=== PATIENT | female | born 1985 | race Caucasian/White ===

== ENCOUNTER 2024-03-05 03:20 | Inpatient (IN) | payer MEDICAID, OTHER ==
--- NOTE | 2024-03-05 04:07 | ED ---
General Adult HPI - General Chief complaint: Psychiatric Symptoms Stated complaint: Mental Health Time Seen by Provider: 03/05/24 03:34 Source: patient Mode of arrival: ambulatory - History of Present Illness Initial comments: Patient is a 38-year-old female past medical history of depression presenting today for URI symptoms x 2 months and suicidal thoughts. Patient states that she has been dealing with nasal congestion, runny nose, increased frequency of migraine headaches, cough and bodyaches for "months". She was seen in urgent care recently where she was prescribed antibiotics that she completed approximately 1 week ago without improvement of symptoms. She is unsure of the name of the antibiotic she was prescribed. Endorses chills but has not had any fevers. No recent travel, surgeries or hospitalizations. She is a non-smoker. Cough is nonproductive of sputum or blood. She does states she has some shortness of breath "when at work", and thinks possible secondary to "the hot air" blowing in her face at work. She denies changes in vision, numbness, focal weakness. Denies sore throat. Endorses sensation of ear fullness. Is not immunocomprimised. Denies chest pain, nausea, vomiting, abdominal pain, diarrhea. Has mirena IUD in place "that should have been removed a year ago". No history of prior PE/DVT. Is a non-smoker. Patient also presents today for SI. She states she has been out of her prozac for 5 months due to not having insurance and is on the waiting list with [facility]. When asked about a plan, patient states she would "just float in the water". She has previously tried to commit suicide about 1 year ago by wrapping a seatbelt around her neck. She was hospitalized for this. Denies homicidal thoughts or hallucinations. Does state that she drank a few beers last night. Last drink was a few hours prior to arrival. Denies illicit drug use. - Related Data Allergies Allergy/AdvReac Type Severity Reaction Status Date / Time lisinopril AdvReac Cough Verified 03/05/24 15:48 Review of Systems ROS Statement: Those systems with pertinent positive or pertinent negative responses have been documented in the HPI. ROS Other: All systems not noted in ROS Statement are negative. Past Medical History Past Medical History: Hypertension History of Any Multi-Drug Resistant Organisms: None Reported Past Surgical History: Orthopedic Surgery Past Psychological History: Anxiety, Depression Smoking Status: Never smoker Past Alcohol Use History: Daily Past Drug Use History: None Reported General Exam - General Exam Comments Initial Comments: PE: CONSTITUTIONAL: No apparent distress, well appearing, tearful, makes poor eye contact SKIN: Warm, dry, no jaundice, hives or petechiae EYES: Pupils are equally round, extraocular movements intact without nystagmus, clear conjunctiva, non-icteric sclera HENT: Normocephalic, atraumatic, moist mucus membranes, oropharynx clear without exudates, no sinus tenderness or fullness to palpation, no rhinorrhea or thick nasal discharge, mild mucosal edema, tympanic membranes pearly lopez bilaterally NECK: , Full range of motion, normal appearance, no masses palpated, scant cervical lymphadenopathy PULMONARY: Clear to auscultation without wheezes, rhonchi, or rales, normal excursion, no accessory muscle use and no stridor CARDIOVASCULAR: Regular rate, rhythm, normal S1 and S2. No appreciated murmurs, rubs or gallops. Extremities well-perfused no lower extremity edema GASTROINTESTINAL: Soft, active bowel sounds throughout, non-tender, non- distended, no palpable masses, no rebound or guarding. No hepatosplenomegaly MUSCULOSKELETAL: Extremities have no gross deformity, no edema, redness, or swelling. No calf swelling NEUROLOGIC:_a/o x 3, GCS 15, normal mentation and speech. Moves all extremities x 4 without motor or sensory deficit PSYCHIATRIC:_Withdrawn and depressed mood and tearful affect, thought process is clear and linear, endorses suicidal thoughts, denies auditory or visual hallucinations or homicidal thoughts Course Vital Signs 03/05/24 03/05/24 03:22 14:00 Temperature 98.4 F 99.4 F Pulse Rate 101 H Pulse Rate [ 115 H Right Sitting] Respiratory 18 18 Rate Blood Pressure 138/88 Blood Pressure 133/84 [Right Arm Sitting] O2 Sat by Pulse 94 L 97 Oximetry EKG Findings - EKG Comments: EKG Findings:: Sinus rhythm, rate 90 bpm, IN interval 183 ms, QRS duration 102 ms, QT/QTc 376/424 ms, normal axis, no ST elevations or depressions, no delta waves or Brugada pattern Medical Decision Making - Medical Decision Making Was pt. sent in by a medical professional or institution (, PA, ENGINE ROOM OPERATOR, urgent ca re, hospital, or custodial...) When possible be specific @ -No Did you speak to anyone other than the patient for history (EMS, parent, family, police, friend...)? What history was obtained from this source @ -No Did you review nursing and triage notes (agree or disagree)? Why? @ -I reviewed nursing and triage notes-patient endorsed clerical supervisor that URI symptoms have been going on for "a couple of days" however endorsed to myself that they have been ongoing for "a few months" Were old charts reviewed (outside hosp., previous admission, EMS record, old EKG, old radiological studies, urgent care reports/EKG's, custodial records)? Report findings @ -Medical records reviewed-no prior visits to the ER noted in patient's chart Differential Diagnosis (chest pain, altered mental status, abdominal pain women, abdominal pain men, vaginal bleeding, weakness, fever, dyspnea, syncope, headach e, dizziness, GI bleed, back pain, seizure, CVA, palpatations, mental health, musculoskeletal)? @Differential Mental Health Depression, anxiety, bipolar, psychosis, schizophrenia, borderline personality, situational depression, adjustment disorder, behavioral disorder, brain tumor, malingering, substance abuse, encephalopathy, medication reaction, dementia, hypothyroidism, degenerative neurologic disorder, lupus.... This is not meant to be all-inclusive list Regarding patient's upper respiratory symptoms, differential diagnose gretchen broad however top considerations include viral stacking causing URI symptoms, viral versus bacterial sinusitis, pharyngitis, allergic rhinitis, pneumonia this is not an all-inclusive list EKG interpreted by me (3pts min.). @ -As above X-rays interpreted by me (1pt min.). @I see no cardiomegaly or consolidations CT interpreted by me (1pt min.). @ -None done U/S interpreted by me (1pt. min.). @ -None done What testing was considered but not performed or refused? (CT, X-rays, U/S, labs)? Why? @ -I did consider a CT of the sinuses however patient had no sinus tenderness or fullness to palpation and no thick nasal discharge, no fevers What meds were considered but not given or refused? Why? @ -None Did you discuss the management of the patient with other professionals (professionals i.e. , SEPIDEH, ENGINE ROOM OPERATOR, lab, RT, psych nurse, community mental health social worker, blowing engineer, teacher, loan review officer, case finishing machine adjuster)? Give summary @ -No Was smoking cessation discussed for >3mins.? @ -No Was critical care preformed (if so, how long)? @ -No Were there social determinants of health that impacted care today? How? (Homelessness, low income, unemployed, alcoholism, drug addiction, wang sportation, low edu. Level, literacy, decrease access to med. care, long term, rehab)? @Decreased access to medical care, lack of insurance Was there de-escalation of care discussed even if they declined (Discuss DNR or withdrawal of care, Hospice)? @ -No What co-morbidities impacted this encounter? (DM, HTN, Smoking, COPD, CAD, Cancer, CVA, ARF, Chemo, Hep., AIDS, mental health diagnosis, sleep apnea, morbid obesity)? @Depression Was patient admitted / discharged? Hospital course, mention meds given and route, prescriptions, significant lab abnormalities, going to OR and other pertinent info. @ -Signed out to oncoming physician, Dr. Linton, pending EPS evaluation Patient presenting today for upper respiratory infection symptoms and suicidal ideation. She did also endorse shortness of breath, very low suspicion for acute intrathoracic process/cardiopulmonary process however will obtain chest x- ray, EKG, troponin D-dimer in addition to viral panel Monospot testing. Wells score 1.5. Patient's posterior oropharynx was not erythematous, there is no tonsillar swelling or exudates so I did not feel strep testing was indicated at this time. Augementin ordered for sinusitis due to prolonged symptoms (>10 days). Once testing is completed patient will be cleared for evaluation by EPS. Labs significant for D-dimer 0.60 however using years criteria,(patient is not , she has no clinical signs of DVT, no hemoptysis and PE is not the most likely diagnosis), PE can be ruled out w/o CT PE study. Updated patient to findings, plan for chest x-ray and EPS evaluation. Patient agreeable with plan. Endorses nausea. Chest x-ray without acute process. Patient medically cleared for evaluation by EPS. Undiagnosed new problem with uncertain prognosis? @ -No Drug Therapy requiring intensive monitoring for toxicity (Heparin, Nitro, Insulin, Cardizem)? @ -No Were any procedures done? @ -No Diagnosis/symptom? @Acute sinusitis, suicidal ideation Acute, or Chronic, or Acute on Chronic? @Acute Uncomplicated (without systemic symptoms) or Complicated (systemic symptoms)? Complicated Side effects of treatment? @ -No Exacerbation, Progression, or Severe Exacerbation? @ -No Poses a threat to life or bodily function? How? (Chest pain, USA, ND, pneumonia, PE, COPD, DKA, ARF, appy, cholecystitis, CVA, Diverticulitis, Homicidal, Suicidal, threat to staff... and all critical care pts) Patient suicidality poses a threat to life - Lab Data Result diagrams: 03/06/24 07:42 03/06/24 07:42 Lab Results 03/05/24 03/05/24 03/05/24 Range/Units 05:15 05:18 05:18 WBC 6.2 (3.8-10.6) k/uL RBC 5.01 (3.80-5.40) m/uL Hgb 14.2 (11.4-16.0) gm/dL Hct 41.9 (34.0-46.0) % MCV 83.7 (80.0-100.0) fL MCH 28.4 (25.0-35.0) pg MCHC 33.9 (31.0-37.0) g/dL RDW 13.6 (11.5-15.5) % Plt Count 301 (150-450) k/uL MPV 6.6 Neutrophils % 60 % Lymphocytes % 30 % Monocytes % 3 % Eosinophils % 4 % Basophils % 1 % Neutrophils # 3.7 (1.3-7.7) k/uL Lymphocytes # 1.8 (1.0-4.8) k/uL Monocytes # 0.2 (0-1.0) k/uL Eosinophils # 0.3 (0-0.7) k/uL Basophils # 0.1 (0-0.2) k/uL PT 11.1 (10.0-12.5) sec INR 1.0 (<1.2) APTT 25.0 (22.0-30.0) sec D-Dimer 0.60 H (<0.60) mg/L FEU Sodium (137-145) mmol/L Potassium (3.5-5.1) mmol/L Chloride (98-107) mmol/L Carbon Dioxide (22-30) mmol/L Anion Gap mmol/L BUN (7-17) mg/dL Creatinine (0.52-1.04) mg/dL Est GFR (CKD-EPI)AfAm (>60 ml/min/1.73 sqM) Est GFR (CKD-EPI)NonAf (>60 ml/min/1.73 sqM) Glucose (74-99) mg/dL Calcium (8.4-10.2) mg/dL Total Bilirubin (0.2-1.3) mg/dL AST (14-36) U/L ALT (4-34) U/L Alkaline Phosphatase (38-126) U/L Troponin I (0.000-0.034) ng/mL NT-Pro-B Natriuret Pep pg/mL Total Protein (6.3-8.2) g/dL Albumin (3.5-5.0) g/dL HCG, Qual Heterophile Antibody (Negative) Influenza Type A (PCR) Not Detected (Not Detectd) Influenza Type B (PCR) Not Detected (Not Detectd) RSV (PCR) Not Detected (Not Detectd) SARS-CoV-2 (PCR) Not Detected (Not Detectd) 03/05/24 03/05/24 03/05/24 Range/Units 05:18 05:18 05:18 WBC (3.8-10.6) k/uL RBC (3.80-5.40) m/uL Hgb (11.4-16.0) gm/dL Hct (34.0-46.0) % MCV (80.0-100.0) fL MCH (25.0-35.0) pg MCHC (31.0-37.0) g/dL RDW (11.5-15.5) % Plt Count (150-450) k/uL MPV Neutrophils % % Lymphocytes % % Monocytes % % Eosinophils % % Basophils % % Neutrophils # (1.3-7.7) k/uL Lymphocytes # (1.0-4.8) k/uL Monocytes # (0-1.0) k/uL Eosinophils # (0-0.7) k/uL Basophils # (0-0.2) k/uL PT (10.0-12.5) sec INR (<1.2) APTT (22.0-30.0) sec D-Dimer (<0.60) mg/L FEU Sodium 141 (137-145) mmol/L Potassium 4.4 (3.5-5.1) mmol/L Chloride 108 H (98-107) mmol/L Carbon Dioxide 23 (22-30) mmol/L Anion Gap 10 mmol/L BUN 8 (7-17) mg/dL Creatinine 0.58 (0.52-1.04) mg/dL Est GFR (CKD-EPI)AfAm >90 (>60 ml/min/1.73 sqM) Est GFR (CKD-EPI)NonAf >90 (>60 ml/min/1.73 sqM) Glucose 108 H (74-99) mg/dL Calcium 9.0 (8.4-10.2) mg/dL Total Bilirubin 0.4 (0.2-1.3) mg/dL AST 18 (14-36) U/L ALT 15 (4-34) U/L Alkaline Phosphatase 64 (38-126) U/L Troponin I <0.012 (0.000-0.034) ng/mL NT-Pro-B Natriuret Pep 20 pg/mL Total Protein 7.2 (6.3-8.2) g/dL Albumin 4.4 (3.5-5.0) g/dL HCG, Qual Not Detected Heterophile Antibody Negative (Negative) Influenza Type A (PCR) (Not Detectd) Influenza Type B (PCR) (Not Detectd) RSV (PCR) (Not Detectd) SARS-CoV-2 (PCR) (Not Detectd) 03/05/24 Range/Units 12:31 WBC (3.8-10.6) k/uL RBC (3.80-5.40) m/uL Hgb (11.4-16.0) gm/dL Hct (34.0-46.0) % MCV (80.0-100.0) fL MCH (25.0-35.0) pg MCHC (31.0-37.0) g/dL RDW (11.5-15.5) % Plt Count (150-450) k/uL MPV Neutrophils % % Lymphocytes % % Monocytes % % Eosinophils % % Basophils % % Neutrophils # (1.3-7.7) k/uL Lymphocytes # (1.0-4.8) k/uL Monocytes # (0-1.0) k/uL Eosinophils # (0-0.7) k/uL Basophils # (0-0.2) k/uL PT (10.0-12.5) sec INR (<1.2) APTT (22.0-30.0) sec D-Dimer (<0.60) mg/L FEU Sodium (137-145) mmol/L Potassium (3.5-5.1) mmol/L Chloride (98-107) mmol/L Carbon Dioxide (22-30) mmol/L Anion Gap mmol/L BUN (7-17) mg/dL Creatinine (0.52-1.04) mg/dL Est GFR (CKD-EPI)AfAm (>60 ml/min/1.73 sqM) Est GFR (CKD-EPI)NonAf (>60 ml/min/1.73 sqM) Glucose (74-99) mg/dL Calcium (8.4-10.2) mg/dL Total Bilirubin (0.2-1.3) mg/dL AST (14-36) U/L ALT (4-34) U/L Alkaline Phosphatase (38-126) U/L Troponin I (0.000-0.034) ng/mL NT-Pro-B Natriuret Pep pg/mL Total Protein (6.3-8.2) g/dL Albumin (3.5-5.0) g/dL HCG, Qual Heterophile Antibody (Negative) Influenza Type A (PCR) Not Detected (Not Detectd) Influenza Type B (PCR) Not Detected (Not Detectd) RSV (PCR) Not Detected (Not Detectd) SARS-CoV-2 (PCR) Not Detected (Not Detectd) Disposition Clinical Impression: Suicidal thoughts, Sinusitis Disposition: ADMITTED IP TO THIS HOSP
[2024-03-05] MEDS: SODIUM CHLORIDE 0.9% 1,000 ML IV STA (05:41)
[2024-03-05] MEDS: KETOROLAC 15 MG/ML 1 ML VIAL IVP STA (05:42)
[2024-03-05 05:43] LABS: Basophils # (A) 0.1 k/uL (0-0.2); Basophils % (A) 1 %; Eosinophils # (A) 0.3 k/uL (0-0.7); Eosinophils % (A) 4 %; HCT 41.9 % (34.0-46.0); HGB 14.2 gm/dL (11.4-16.0); Lymphocytes # (A) 1.8 k/uL (1.0-4.8); Lymphocytes % (A) 30 %; MCH 28.4 pg (25.0-35.0); MCHC 33.9 g/dL (31.0-37.0); MCV 83.7 fL (80.0-100.0); Mean Platelet Volume 6.6; Monocytes # (A) 0.2 k/uL (0-1.0); Monocytes % (A) 3 %; Neutrophils # (A) 3.7 k/uL (1.3-7.7); Neutrophils % (A) 60 %; Platelet Count 301 k/uL (150-450); RBC 5.01 m/uL (3.80-5.40); RDW 13.6 % (11.5-15.5); WBC 6.2 k/uL (3.8-10.6)
[2024-03-05] MEDS: AMOXIC-POT CLAV 875-125MG 1 EACH TAB PO STA (05:43)
[2024-03-05] MEDS: predniSONE 50 MG TAB PO STA (05:43)
[2024-03-05 05:54] LABS: ALT 15 U/L (4-34); AST 18 U/L (14-36); African American GFR (CKD) >90 (>60 ml/min/1.73 sqM); Albumin 4.4 g/dL (3.5-5.0); Alkaline Phosphatase 64 U/L (38-126); Anion Gap 10 mmol/L; Blood Urea Nitrogen 8 mg/dL (7-17); Carbon Dioxide 23 mmol/L (22-30); Chloride 108 mmol/L (98-107); Glucose 108 mg/dL (74-99); Non-African American GFR(CKD) >90 (>60 ml/min/1.73 sqM); Potassium 4.4 mmol/L (3.5-5.1); Sodium 141 mmol/L (137-145); Total Bilirubin 0.4 mg/dL (0.2-1.3); Total Protein 7.2 g/dL (6.3-8.2)
[2024-03-05 05:57] LABS: Prothrombin Time 11.1 sec (10.0-12.5)
[2024-03-05 05:58] LABS: HCG,Qualitative Serum Not Detected
[2024-03-05 06:03] LABS: NT-Pro-B-Type Natriuretic Pept 20 pg/mL
--- NOTE | 2024-03-05 06:31 | XR ---
EXAMINATION TYPE: XR chest 2V DATE OF EXAM: 03/05/2024 6:26 AM COMPARISON: None. CLINICAL INDICATION: Female, 38 years old with history of shortness of breath, URI sx x 2 months, TECHNIQUE: Frontal and lateral views of the chest are obtained. FINDINGS: There is no focal air space opacity, pleural effusion, or pneumothorax seen. The cardiac silhouette size is within normal limits. The osseous structures are intact. IMPRESSION: No acute pulmonary process. [facility], , 03/05/2024 6:28 AM
[2024-03-05] MEDS: ONDANSETRON ODT 4 MG TAB PO STA (08:46)
[2024-03-05] MEDS ORDERED: MAGNESIUM HYDROXIDE 2,400 MG/30 ML CUP PO PRN (14:27)
[2024-03-05] MEDS ORDERED: hydrOXYzine HCL 50 MG/ML 1 ML VIAL IM PRN (14:27)
[2024-03-05] MEDS ORDERED: haloperidoL 5 MG TAB PO PRN (14:27)
[2024-03-05] MEDS ORDERED: HALOPERIDOL LACTATE 5 MG/ML 1 ML VIAL IM PRN (14:27)
[2024-03-05] MEDS ORDERED: ACETAMINOPHEN TAB 325 MG TAB PO PRN (14:27)
[2024-03-05] MEDS ORDERED: MAG HYDROX/AL HYDROX/SIMETH 355 ML BOTTLE PO PRN (14:27)
[2024-03-05] MEDS: IBUPROFEN 600 MG TAB PO PRN (15:33)
[2024-03-05] MEDS: hydrOXYzine HCL 25 MG TAB PO PRN (21:38)
[2024-03-06 08:18] LABS: Basophils # (A) 0.1 k/uL (0-0.2); Basophils % (A) 1 %; Eosinophils # (A) 0.3 k/uL (0-0.7); Eosinophils % (A) 4 %; HCT 42.3 % (34.0-46.0); HGB 14.1 gm/dL (11.4-16.0); Lymphocytes # (A) 3.5 k/uL (1.0-4.8); Lymphocytes % (A) 46 %; MCH 28.1 pg (25.0-35.0); MCHC 33.2 g/dL (31.0-37.0); MCV 84.6 fL (80.0-100.0); Mean Platelet Volume 6.9; Monocytes # (A) 0.3 k/uL (0-1.0); Monocytes % (A) 4 %; Neutrophils # (A) 3.4 k/uL (1.3-7.7); Neutrophils % (A) 45 %; Platelet Count 290 k/uL (150-450); RDW 13.6 % (11.5-15.5); WBC 7.7 k/uL (3.8-10.6)
[2024-03-06 08:30] LABS: ALT 14 U/L (4-34); AST 15 U/L (14-36); African American GFR (CKD) >90 (>60 ml/min/1.73 sqM); Albumin 4.2 g/dL (3.5-5.0); Alkaline Phosphatase 60 U/L (38-126); Anion Gap 7 mmol/L; Bilirubin,Unconjugated 0.5 mg/dL (0.0-1.1); Blood Urea Nitrogen 9 mg/dL (7-17); Calcium 9.3 mg/dL (8.4-10.2); Carbon Dioxide 28 mmol/L (22-30); Chloride 102 mmol/L (98-107); Glucose 99 mg/dL (74-99); Non-African American GFR(CKD) >90 (>60 ml/min/1.73 sqM); Potassium 3.9 mmol/L (3.5-5.1); Sodium 137 mmol/L (137-145); Total Bilirubin 0.5 mg/dL (0.2-1.3); Total Protein 6.8 g/dL (6.3-8.2)
[2024-03-06] MEDS: FLUoxetine HCL 20 MG CAP PO SCH (12:08)
[2024-03-06] MEDS: busPIRone HCl 5 MG TAB PO SCH (12:08)
[2024-03-06 15:12] LABS: Chol/HDL Ratio 5.32 Ratio; LDL Cholesterol,Calculated 125.4 mg/dL (0.0-131.0)
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
--- NOTE | 2024-03-07 15:31 | P.PN ---
Progress Note - Text Progress Note Date: 03/07/24 Dictation was produced using [employer] dictation software. Please excuse any grammatical, word or spelling errors. Interval history: She states that she is feeling a little better, she reported that depression and anxiety are at the moderate side, she states that she did not sleep well last night and was tossing and turning, she admitted to good appetite. She denied any current SI/HI, or AVH. She states that she is feeling fine being here, and reported that she is glad that she asked for help, however stressed about missing work. She reported that she is currently renting a room and can go back. She states that she has been taking her medications, denied any side effects. She states that she was on a higher dose of her medications and agreed to increase the dose. She states that she is having some withdrawal symptoms, and has been taking medication to help for that. She has no other con cerns at this time. MENTAL STATUS EXAM: General Appearance: Patient appears to be stated age is alert, directable, and attempts to cooperate. Patient appears to have fair hygiene and grooming. Behavior: Patient is seated without any agitated behavior. Speech: Patient's speech is fluent and nonpressured. Mood/Affect: Patient reports their mood is "a little better", affect is congruent and constricted. Suicidality/Homicidality: Patient denies having any homicidal ideation intent or plan. Denies any suicidal ideations intent or plan Perceptions: Patient denies any visual hallucinations and denies any auditory hallucinations Though content/process: There is no evidence of any delusional thought content and thought process is linear and goal-directed. Memory and concentration: AOX3, grossly intact for the purposes of this session. Can spell "WORLD" backwards Judgment and insight: improving IMPRESSIONS: Major depressive disorder, recurrent, severe, with suicidal ideation Generalized anxiety disorder Rule out PTSD Alcohol use disorder PLAN: -Patient is admitted under voluntary status to MHU for stabilization of psychiatric symptoms and safety. -Medications : Increase Prozac to 30 mg p.o. daily Increase BuSpar to 10 mg p.o. twice daily -Ativan and Haldol PRN for agitation/aggression -Scheduled Librium for alcohol withdrawal with plan to taper. -Patient was counselled on substance abuse and desired to cut back on use. - Offer patient substance use rehab, patient declined inpatient rehab, reported she is currently doing outpatient rehab -Patient was informed of the risks, benefits and side effects of the medication and patient verbally consented to taking the medications. Patient signed med consent form and was placed in chart. -Internal Medicine consult to perform medical evaluation and physical. -NRT -not needed as patient does not smoke -SW on board for discharge planning. Encourage patient to participate in groups to work on coping skills.
[2024-03-07] MEDS: busPIRone HCl 10 MG TAB PO SCH (21:23)
[2024-03-08] MEDS: FLUoxetine HCL 10 MG CAP PO SCH (08:45)
--- NOTE | 2024-03-08 11:47 | P.PN ---
Progress Note - Text Progress Note Date: 03/08/24 Dictation was produced using [employer] dictation software. Please excuse any grammatical, word or spelling errors. Interval history: Pt states that she is feeling a little better, she states that she took some prn last night since her anxiety was high after talking with her sister, she reported depression and anxiety to be at the moderate side, she denied any current thoughts of SI/HI, or AVH, however pt was guarded with a flat affect, minimizing her symptoms. Reported that she feels safe in the unit, getting along well with everyone. She reported that she was drinking few 24 oz beers and some vodka mixed drinks prior to coming here. She states that she is renting a room and can go back. Reported that she has a therapist however no psychiatrist, reported that she would like to have that when she leaves. Reported that she has been taking her meds, denied any side effects. She has no other concerns at this time. MENTAL STATUS EXAM: General Appearance: Patient appears to be stated age is alert, directable, and attempts to cooperate. Patient appears to have fair hygiene and grooming. Behavior: Patient is seated without any agitated behavior. Speech: Patient's speech is fluent and nonpressured. Mood/Affect: Patient reports their mood is "a little better", affect is flat, constricted and mood incongruent. Suicidality/Homicidality: Patient denies having any homicidal ideation intent or plan. Denies any suicidal ideations intent or plan Perceptions: Patient denies any visual hallucinations and denies any auditory hallucinations Though content/process: There is no evidence of any delusional thought content and thought process is linear and goal-directed. Memory and concentration: AOX3, grossly intact for the purposes of this session. Can spell "WORLD" backwards Judgment and insight: improving IMPRESSIONS: Major depressive disorder, recurrent, severe, with suicidal ideation Generalized anxiety disorder Rule out PTSD Alcohol use disorder PLAN: -Patient is admitted under voluntary status to MHU for stabilization of psychiatric symptoms and safety. -Medications : Continue Prozac 30 mg p.o. daily Continue BuSpar 10 mg p.o. twice daily -Ativan and Haldol PRN for agitation/aggression -Scheduled Librium for alcohol withdrawal with plan to taper. -Patient was counselled on substance abuse and desired to cut back on use. - Offer patient substance use rehab, patient declined inpatient rehab, reported she is currently doing outpatient rehab -Patient was informed of the risks, benefits and side effects of the medication and patient verbally consented to taking the medications. Patient signed med consent form and was placed in chart. -Internal Medicine consult to perform medical evaluation and physical. -NRT -not needed as patient does not smoke -SW on board for discharge planning. Encourage patient to participate in groups to work on coping skills.
[2024-03-08 13:41] LABS: Appearance,Urine Clear (Clear); Bilirubin,Urine Negative (Negative); Blood,Urine Negative (Negative); Color,Urine Yellow; Glucose,Urine (UA) Negative (Negative); Ketones,Urine Negative (Negative); Leukocyte Esterase,Urine Negative (Negative); Nitrite,Urine Negative (Negative); PH, Urine 5.5 (5.0-8.0); Protein,Urine Negative (Negative); Specific Gravity,Urine 1.018 (1.001-1.035); Urobilinogen,Urine <2.0 mg/dL (<2.0)
--- NOTE | 2024-03-08 17:10 | P.CONS ---
History of Present Illness - Reason for Consult Consult date: 03/08/24 - History of Present Illness 38 year old F with PMH of HTN and seasonal allergies presents to [facility] for mental health concerns. She has been admitted to the MHU for further workup and management. [facility] consulted for medical management of this patient. Patient reports rhinorrhea and nasal congestion. Symptoms consistent with allergic rhinitis. Previously on Zyrtec. Also reports chronic pain in her right hip and ankle. Pain is 3-5.5/10 in severity. Previously on a pain medication that started with a "T". CBC, Coag panel, CMP significant with Cl 108, glu 108. Trop < 0.012. BNP 20. A1c 5.9. HCG neg. UA neg. COVID, RSV, Flu neg. D-Dimer 0.6. Lipid panel T. Chol 230, LDL 125, TG 307. TSH 1.23. EKG sinus rhythm. CXR no acute distress. General: non toxic, no distress, appears at stated age Derm: warm, dry Head: atraumatic, normocephalic, symmetric Eyes: EOMI, no lid lag, anicteric sclera Mouth: no lip lesion, mucus membranes moist Cardiovascular: S1S2 reg, no murmur Lungs: CTA bilateral, no rhonchi, no rales , no accessory muscle use Abdominal: soft, non tenderness to palpation, no guarding, no appreciable organomegaly Ext: no gross muscle atrophy, no edema, no contractures Neuro: no focal neuro deficits Psych: Alert, oriented, appropriate affect Based on my assessment of this patient, this patient meets a high complexity level of care. Seasonal allergies: Start Claritin 10 mg PO QD. Dyslipidemia: Advised dietary modifications and weight loss at this time. HTN: Currently not on medication. BP 116/78. Chronic right hip pain: Ibuprofen 600 mg PO Q6H. CODE STATUS: FULL CODE. DVT Prophylaxis: Early mobilization. GI Prophylaxis: Designated medical POA if patient is not able to make medical decisions for themselves: I have reviewed the following oim consultant notes: ED, Psyc note. I have reviewed the results of the following tests: As above. I have ordered the following tests: As above. I have discussed the care of this patient with the following independent his monalisa: NILA. I have independently interpreted the following test below: EKG. I have discussed the management of this patient with the following physician: Past Medical History Past Medical History: Hypertension History of Any Multi-Drug Resistant Organisms: None Reported Past Surgical History: Orthopedic Surgery Additional Past Surgical History / Comment(s): right knee Past Anesthesia/Blood Transfusion Reactions: No Reported Reaction Past Psychological History: Anxiety, Depression Smoking Status: Never smoker Past Alcohol Use History: Daily Past Drug Use History: None Reported Medications and Allergies Allergies Allergy/AdvReac Type Severity Reaction Status Date / Time lisinopril AdvReac Cough Verified 03/05/24 15:48 Physical Exam Vitals: Vital Signs Temp Pulse Resp BP Pulse Ox 03/08/24 06:08 98.1 F 72 18 116/78 98 Results CBC & Chem 7: 03/06/24 07:42 03/06/24 07:42
[2024-03-08] MEDS: LORATADINE 10 MG TAB PO SCH (17:28)
[2024-03-08 20:54] LABS: Urine Alcohol Negative (Negative)
[2024-03-08 20:55] LABS: Urine Barbiturate Negative (Negative); Urine Cocaine Negative (Negative); Urine Methadone Negative (Negative); Urine Opiates Negative (Negative); Urine Phencyclidine Negative (Negative)
--- NOTE | 2024-03-09 12:50 | P.PN ---
Progress Note - Text Progress Note Date: 03/09/24 Interval history: Patient was seen laying in her bed today and was directable and agreeable to speak with life underwriter. She claims that she is still having some anxiety, spoke about increasing BuSpar which she is okay with. She also states that she had a difficult time sleeping last night wants to try melatonin. Claims that the withdrawal symptoms have been improving, we spoke about decreasing Librium over the weekend. He was fairly calm and cooperative today with life underwriter fairly pleasant. Denied any overnight issues, not reporting any side effects, fair appetite. At this time patient denies any suicidal or homicidal ideations intent or plan. Denies any Auditory or visual hallucinations. Patient denies any side effects from the medications and has been compliant with meds. Mental status exam: General Appearance: Patient appears to be stated age is alert, directable, and cooperative. Of the overweight, wearing glasses. Behavior: No agitated behavior. Patient is calm and directable attempts to cooperate Speech: Patient's speech is fluent and nonpressured. Mood/Affect: Mood is improving mildly, affect is congruent and constricted. Suicidality/Homicidality: Patient denies having any suicidal or homicidal ideation intent or plan. Perceptions: Patient denies any auditory or visual hallucinations. Though content/process: There is no evidence of any delusional thought content and thought process is linear and goal-directed. Memory and concentration: AOX3, grossly intact for the purposes of this session Judgment and insight: improving mildly Assessment/Plan: Continue with current diagnosis. Patient continues to meet criteria for inpatient psychiatric admission for symptom stabilization and safety. Patient will be maintained on current psychotropic medication regimen, with the exception of increasing BuSpar to 20 twice daily, will continue to titrate off of Librium last dose Monday. Increasing Prozac to 40 mg daily. Monitor for medication compliance and for any psychotropic medication side effects. Will continue to monitor ongoing response to treatment. Encouraged participation in milieu. Likely discharge Monday if patient is improving.
[2024-03-09] MEDS: busPIRone HCl 10 MG TAB PO SCH (13:40)
[2024-03-09] MEDS: MELATONIN 5 MG TABLET PO SCH (20:57)
[2024-03-10] MEDS: FLUoxetine HCL 20 MG CAP PO SCH (08:35)
--- NOTE | 2024-03-10 10:41 | P.PN ---
Progress Note - Text Progress Note Date: 03/10/24 Interval history: Patient was seen laying in her bed today and was directable and agreeable to speak with check writer. She claims that she still had a difficult time sleeping last night with the melatonin. General Counsel offered other solutions however she wants to stick with melatonin at this time. Was agreeable to try Vistaril as needed. Denied any other issues with her medications at this time. Denied any overnight issues, not reporting any side effects, fair appetite. At this time patient denies any suicidal or homicidal ideations intent or plan. Denies any Auditory or visual hallucinations. Patient denies any side effects from the medications and has been compliant with meds. Mental status exam: General Appearance: Patient appears to be stated age is alert, directable, and cooperative. Of the overweight, wearing glasses. Behavior: No agitated behavior. Patient is calm and directable attempts to cooperate, improving mildly Speech: Patient's speech is fluent and nonpressured. Mood/Affect: Mood is improving mildly, affect is congruent and constricted. Suicidality/Homicidality: Patient denies having any suicidal or homicidal ideation intent or plan. Perceptions: Patient denies any auditory or visual hallucinations. Though content/process: There is no evidence of any delusional thought content and thought process is linear and goal-directed. Focused on her medications Memory and concentration: AOX3, grossly intact for the purposes of this session Judgment and insight: improving mildly Assessment/Plan: Continue with current diagnosis. Patient continues to meet criteria for inpatient psychiatric admission for symptom stabilization and safety. Patient will be maintained on current psychotropic medication regimen, continue to titrate off of Librium last dose Monday. Vistaril as needed for anxiety. Monitor for medication compliance and for any psychotropic medication side effects. Will continue to monitor ongoing response to treatment. Encouraged participation in milieu. Likely discharge Monday if patient is improving.
[2024-03-10] MEDS: hydrOXYzine pamoate 25 MG CAP PO PRN (20:50)
--- NOTE | 2024-03-11 13:08 | P.PN ---
Progress Note - Text Progress Note Date: 03/11/24 Interval History: Patient was seen wandering the hallways and was directable and agreeable to sp johnathon with typewriter repairer in the office. She states feeling better today. She states her anxiety is less and that she is sleeping better. She denied any cravings for alcohol however was agreeable with starting naltrexone for maintenance of sobriety as she has tried Antabuse in the past but had adverse effects to this medication. She states living with roommate and she would likely return home with them upon discharge. Patient's elevated cholesterol and triglycerides were discussed and she was encouraged to modify her diet and exercise routine. At this time patient denies any suicidal or homicidal ideations, intent or plan. Patient denies any auditory, visual hallucinations and denies any paranoia or delusions. Patient denies any side effects from the medications and has been compliant with meds. Mental Status Exam: General Appearance: Patient appears to be stated age is alert, directable, and cooperative. Behavior: Patient is calmly seated without any agitated behavior. Speech: Patient's speech is fluent and nonpressured. Mood/Affect: Mood is improving mildly, affect is congruent and reactive. Suicidality/Homicidality: Patient denies having any suicidal or homicidal ideation intent or plan. Perceptions: Patient denies any visual hallucinations and denies any auditory hallucinations Though content/process: There is no evidence of any delusional thought content and thought process is linear and goal-directed. Memory and concentration: AOX3, grossly intact for the purposes of this session Judgment and insight: Improving mildly Assessment Major depressive disorder, recurrent, severe without psychotic features Generalized anxiety disorder Alcohol use disorder Rule out PTSD Plan: -Patient continues to meet criteria for inpatient psychiatric admission for symptom stabilization and safety. Patient has signed adult voluntary form and medication consent and was placed in patient's chart. -Medications: Continue Prozac 40 mg daily for depression/anxiety, melatonin 10 mg at bedtime for sleep, BuSpar 20 mg twice daily for anxiety, start naltrexone 50 mg at bedtime for alcohol cravings -When necessary Ativan and Haldol for agitation/aggression. -Labs: Lipid panel elevated, patient encouraged to diet and exercise -SW on board for discharge planning. Encouraged the patient to participate in milieu. Anticipate discharge back home with roommate tomorrow
[2024-03-11] MEDS: NALTREXONE HCL 50 MG TAB PO SCH (20:14)
[2024-03-12 07:07] VITALS: BP 115/84; PULSE 60; RESP 16; TEMP 97.3
--- NOTE | 2024-03-12 11:33 | P.DS ---
Providers Date of admission: 03/05/24 13:36 Expected date of discharge: 03/12/24 Attending physician: Belen Alba MD Consults: 03/08/24 08:30 Consult Physician Routine Consulting Provider: Terrence Carias Consult Reason/Comments: H &P and medical care Do you want consulting provider notified?: Yes Primary care physician: Stated None - Discharge Diagnosis(es) (1) Major depressive disorder, recurrent severe without psychotic features Current Visit: Yes Status: Acute Priority: High (2) Generalized anxiety disorder Current Visit: Yes Status: Acute Priority: Medium (3) Alcohol use disorder Current Visit: Yes Status: Acute Priority: High Hospital Course: Admission HPI: Admission note was completed by Dr. Covington "Patient presented to the hospital initially for UTI symptoms x 2-month, and she reported suicidal thoughts, she reported that [facility] due to not having insurance and is on the waiting list with [facility]. She had a prior history of suicidal attempt 1 year ago by wrapping seatbelt around her neck, was hospitalized at that time. Also reported that she has been drinking alcohol. On evaluation in the unit, she states that being overwhelmed with everything lately, ported that she lost her car and has being paying too much to go to work. Reported that she lost her insurance few months ago and has been trying to get with [facility] to get her medication, reported that she is just started therapy and waiting to see a psychiatrist. She admitted to feeling down, sad, depressed, hopeless, helpless, reported that her sleep on and off lately, admitted to on and off appetite as well. She states that she had several thoughts prior to coming to the hospital however that was gone, she denied any current suicidal or homicidal thoughts or behavior. She reported that she had attempt suicide years ago and was admitted to [facility] at that time, reported that she had some domestic violence charges and she tried to strangulate herself in a police car. Denied any manic or hypomanic symptoms, denied any auditory or visual hallucination. She denied flights of ideas, racing thoughts, increased goal-directed activity. Reported that she wanted to go back on her medication and wanted to get some help to establish care outpatient follow-up." Hospital course: Upon admission to the unit patient was directable and agreeable to commence treatment and signed adult voluntary form.. Patient got along well with other patients on the unit and followed unit protocol. Patient was compliant with the medications and denied any side effects throughout hospital course. Patient was started on Prozac and this was increased to 40 mg daily for depression/anxiety, melatonin increased to 10 mg at bedtime for sleep, BuSpar increased to 20 mg twice daily for anxiety, naltrexone 50 mg at bedtime for alcohol cravings. Patient spoke of her stressors and engaged in therapy both group and individual. Patient was also seen by medical team for history and physical exam. Patient's lipid panel was notably elevated and patient was encouraged to modify her diet and exercise routine and to follow-up with her PCP for further management. Throughout the course of the hospitalization patient gradually improved with regards to mood, anxiety, sleep and returned back to their baseline level of functioning. On the day of discharge patient denied any suicidal or homicidal ideations intent or plan denied any auditory or visual hallucinations. The patient denied any access to guns or weapons. Patient denied any paranoia and did not endorse any delusions. Patient does have a significant history of substance abuse and was counseled on abstaining from all substances including alcohol and marijuana. Patient was offered however declined inpatient substance-abuse rehab.. Patient was also counseled on the medications and need for regular compliance and was encouraged to follow-up with their outpatient appointment for mental health and also for primary care. Patient to be discharged home with friend/roommate with [facility] follow-up. Mental status exam: General Appearance: Patient appears to be stated age is alert, pleasant, and cooperative. Patient is in no acute distress and has improved hygiene and grooming Behavior: Patient is calmly seated without any agitated behavior. Speech: Patient's speech is fluent and nonpressured. Mood/Affect: Patient reports their mood is "good", affect is congruent and euthymic. Suicidality/Homicidality: Patient denies having any suicidal or homicidal ideation intent or plan. Perceptions: Patient denies any auditory or visual hallucinations. Though content/process: There is no evidence of any delusional thought content and thought process is linear and goal-directed. Memory and concentration: AOX3, grossly intact for the purposes of this session. Can spell "WORLD" backwards correctly. Judgment and insight: Fair Impression: Major depressive disorder, recurrent, severe without psychotic features Generalized anxiety disorder Alcohol use disorder Plan: -Continue with discharge today as patient has improved and stabilized psychiatrically and is not currently an imminent threat to themself and/or others. -Continue medications: Prozac 40 mg daily, melatonin 10 mg at bedtime, BuSpar 20 mg twice daily, naltrexone 50 mg at bedtime -Patient was counseled on the need for medication compliance and appropriate follow-up at mental health and also primary care for medical issues. Patient verbalized understanding and agreed. -Social work to help coordinate patients discharge today. also to ensure safe home environment that guns/weapons are either removed from the home or locked away. Social work also to arrange for patients follow up appointments with [facility] for psychiatric care along with follow up with primary care provider. -Patient counseled on abstaining from recreational drugs and marijuana and alcohol. Was informed/educated on the adverse effects on their physical and mental health. Patient verbally agreed and understood. Patient was offered substance abuse treatment however declined at this time. -Patient was instructed to return to the hospital or seek immediate medical care if their psychiatric or medical symptoms do worsen or reoccur. Abnormal Labs 03/05/24 03/05/24 03/06/24 05:18 05:18 07:42 D-Dimer 0.60 H Chloride 108 H Glucose 108 H Triglycerides 307.00 H Cholesterol 230.00 H VLDL Cholesterol, Calc 61.40 H U Benzodiazepines Scrn 03/08/24 09:50 D-Dimer Chloride Glucose Triglycerides Cholesterol VLDL Cholesterol, Calc U Benzodiazepines Scrn Positive A Vital Signs Temp 97.3 F L 03/12/24 06:30 Pulse 60 03/12/24 06:30 Resp 16 03/12/24 06:30 BP 115/84 03/12/24 06:30 Pulse Ox 96 03/12/24 06:30 FiO2 Allergies Allergy/AdvReac Type Severity Reaction Status Date / Time lisinopril AdvReac Cough Verified 03/05/24 15:48 Patient Condition at Discharge: Stable Plan - Discharge Summary New Discharge Prescriptions: New FLUoxetine HCL [PROzac] 40 mg PO DAILY 15 Days #30 cap Naltrexone HCl [Revia] 50 mg PO HS 30 Days #30 tab hydrOXYzine pamoate [Vistaril] 50 mg PO Q8HR PRN 15 Days #15 cap PRN Reason: Anxiety busPIRone HCl [Buspar] 20 mg PO BID 15 Days #60 tab Loratadine [Claritin] 10 mg PO DAILY 15 Days #15 tab Melatonin 10 mg PO HS 15 Days #30 tab Discharge Medication List FLUoxetine HCL [PROzac] 40 mg PO DAILY 15 Days #30 cap 03/11/24 [Rx] Loratadine [Claritin] 10 mg PO DAILY 15 Days #15 tab 03/11/24 [Rx] Melatonin 10 mg PO HS 15 Days #30 tab 03/11/24 [Rx] Naltrexone HCl [Revia] 50 mg PO HS 30 Days #30 tab 03/11/24 [Rx] busPIRone HCl [Buspar] 20 mg PO BID 15 Days #60 tab 03/11/24 [Rx] hydrOXYzine pamoate [Vistaril] 50 mg PO Q8HR PRN 15 Days #15 cap 03/11/24 [Rx] Follow up Appointment(s)/Referral(s): [facility] [Outside] - 03/14/24 1:00 pm (03/14/2024 1:00PM - 2:00PM LIZBET ALAMO 03/26/2024 2:30PM - 3:30PM ILA HUBER ) [facility] [NON-STAFF] - 1 Week Patient Instructions/Handouts: Depression (DC), Generalized Anxiety Disorder (ED), Abuse of Alcohol (DC) Activity/Diet/Wound Care/Special Instructions: [facility] Discharge Info Avoid the use of street drugs and alcohol. Take all medications as prescribed. When you are in need of refills on your medications, please contact your outpatient medical provider and/or outpatient psychiatrist. Please go to your scheduled outpatient appointments for aftercare treatment. If symptoms return or become worse, call the crisis line at or and/or visit the nearest emergency room for assistance. National Suicide and Crisis Lifeline - call or text 472 Discharge/Stand Alone Forms: AA Meetings [facility] Discharge Disposition: HOME SELF-CARE
== END 2024-03-12 13:13 | disposition home or self-care (01) | DRG 885 ==
LOC: EC 03:20 → 3MHU 13:36
PROVIDERS: ADMIT Psychiatry & Neurology Psychiatry; ATTEND Psychiatry & Neurology Psychiatry
DX: F33.2 Major depressive disorder, recurrent severe without psychotic features (principal); R45.851 Suicidal ideations; F41.1 Generalized anxiety disorder; F10.10 Alcohol abuse, uncomplicated; I10 Essential (primary) hypertension; J30.2 Other seasonal allergic rhinitis; J30.9 Allergic rhinitis, unspecified; G89.29 Other chronic pain; M25.551 Pain in right hip; E78.5 Hyperlipidemia, unspecified; F12.90 Cannabis use, unspecified, uncomplicated; Z88.8 Allergy status to other drugs, medicaments and biological substances; Z91.51 Personal history of suicidal behavior
CPT/HCPCS: 36415; 71046; 80053; 80061; 80306; 81003; 82075; 82248; 83036; 83880; 84443; 84484; 84703; 85025; 85379; 85610; 85730; 86308; 87636; 93005; 96361; 96374; 99285

== ENCOUNTER 2024-05-07 03:13 | Inpatient (IN) | payer MEDICAID, OTHER ==
--- NOTE | 2024-05-07 03:46 | ED ---
Psych HPI - General Chief Complaint: Psychiatric Symptoms Stated Complaint: Petition Time Seen by Provider: 05/07/24 03:42 Source: patient, police, RN notes reviewed, old records reviewed Mode of arrival: ambulatory Limitations: no limitations - History of Present Illness Initial Comments: This is a 38-year-old female to the ER for evaluation patient presents today for alcohol intoxication with suicidal ideation patient is under petition for psychiatric evaluation MD Complaint: suicidal ideation, feels depressed, altered mental status Associated Psychiatric Symptoms: depression, suicidal ideation History of same: Yes Quality: constant Improves With: none Associated Symptoms: denies other symptoms If Self Harm: admits thoughts of self harm - Related Data Previous Rx's Medication Instructions Recorded Melatonin 10 mg PO HS 15 Days #30 tab 03/11/24 Naltrexone HCl [Revia] 50 mg PO HS 30 Days #30 tab 03/11/24 FLUoxetine HCL [PROzac] 80 mg PO DAILY 30 Days #120 cap 05/13/24 Loratadine [Claritin] 10 mg PO DAILY 15 Days #15 tab 05/13/24 Loratadine [Claritin] 10 mg PO DAILY 30 Days #30 tab 05/13/24 Naltrexone HCl [Revia] 50 mg PO DAILY 30 Days #30 tab 05/13/24 amLODIPine [Norvasc] 5 mg PO DAILY #30 tab 05/13/24 busPIRone HCl [Buspar] 20 mg PO TID 30 Days #180 tab 05/13/24 diphenhydrAMINE [Benadryl] 25 mg PO HS 30 Days #30 cap 05/13/24 hydrOXYzine pamoate [Vistaril] 25 mg PO Q8HR PRN 45 Days #160 cap 05/13/24 hydrOXYzine pamoate [Vistaril] 100 mg PO HS cap 05/13/24 Allergies Allergy/AdvReac Type Severity Reaction Status Date / Time lisinopril AdvReac Cough Verified 05/07/24 12:08 Review of Systems ROS Statement: Those systems with pertinent positive or pertinent negative responses have been documented in the HPI. ROS Other: All systems not noted in ROS Statement are negative. Past Medical History Past Medical History: Hypertension History of Any Multi-Drug Resistant Organisms: None Reported Past Surgical History: Orthopedic Surgery Additional Past Surgical History / Comment(s): right knee Past Anesthesia/Blood Transfusion Reactions: No Reported Reaction Past Psychological History: Anxiety, Depression Smoking Status: Never smoker Past Alcohol Use History: Daily Past Drug Use History: None Reported - Past Family History Mother Family Medical History: Diabetes Mellitus, Musculoskeletal Disorder Additional Family Medical History / Comment(s): Mother is Father Additional Family Medical History / Comment(s): pt reports father has [place]'s disease and states that he is still living. General Exam Limitations: altered mental status General appearance: anxious Head exam: Present: atraumatic, normocephalic, normal inspection Eye exam: Present: normal appearance, PERRL, EOMI. Absent: scleral icterus, conjunctival injection, periorbital swelling ENT exam: Present: normal exam, mucous membranes moist Neck exam: Present: normal inspection. Absent: tenderness, meningismus, lymphadenopathy Respiratory exam: Present: normal lung sounds bilaterally. Absent: respiratory distress, wheezes, rales, rhonchi, stridor Cardiovascular Exam: Present: regular rate, normal rhythm, normal heart sounds. Absent: systolic murmur, diastolic murmur, rubs, gallop, clicks GI/Abdominal exam: Present: soft, normal bowel sounds. Absent: distended, tenderness, guarding, rebound, rigid Extremities exam: Present: normal inspection, full ROM, normal capillary refill. Absent: tenderness, pedal edema, joint swelling, calf tenderness Back exam: Present: normal inspection Neurological exam: Present: alert, oriented X3, CN II-XII intact Psychiatric exam: Present: normal affect, normal mood Skin exam: Present: warm, dry, intact, normal color. Absent: rash Course Vital Signs 05/07/24 03:14 Temperature 98.6 F Pulse Rate 109 H Respiratory 20 Rate Blood Pressure 134/91 O2 Sat by Pulse 95 Oximetry - Reevaluation(s) Reevaluation #1: 05/07/24 04:05 Records reviewed Reevaluation #4: Differential Mental Health Depression, anxiety, bipolar, psychosis, schizophrenia, borderline personality, situational depression, adjustment disorder, behavioral disorder, brain tumor, malingering, substance abuse, encephalopathy, medication reaction, dementia, hypothyroidism, degenerative neurologic disorder, lupus.... This is not meant to be all-inclusive list Medical Decision Making - Medical Decision Making 38 female to the ER for evaluation of mental health, patient will be admitted f or inpatient psychiatric evaluation and treatment - Lab Data Result diagrams: 05/08/24 13:07 05/08/24 13:07 Lab Results 05/07/24 05/07/24 05/07/24 Range/Units 11:25 13:37 13:37 Urine Color Yellow Urine Appearance Clear (Clear) Urine pH 5.5 (5.0-8.0) Ur Specific [place] 1.020 (1.001-1.035) Urine Protein Negative (Negative) Urine Glucose (UA) Negative (Negative) Urine Ketones Negative (Negative) Urine Blood Negative (Negative) Urine Nitrite Negative (Negative) Urine Bilirubin Negative (Negative) Urine Urobilinogen 3.0 (<2.0) mg/dL Ur Leukocyte Esterase Negative (Negative) Urine HCG, Qual (Not Detectd) Urine Opiates Screen Not Detected (NotDetected) Ur Oxycodone Screen Not Detected (NotDetected) Urine Methadone Screen Not Detected (NotDetected) Ur Barbiturates Screen Not Detected (NotDetected) U Tricyclic Antidepress Not Detected (NotDetected) Ur Phencyclidine Scrn Not Detected (NotDetected) Ur Amphetamines Screen Not Detected (NotDetected) U Methamphetamines Scrn Not Detected (NotDetected) U Benzodiazepines Scrn Detected H (NotDetected) Urine Cocaine Screen Not Detected (NotDetected) U Marijuana (THC) Screen Not Detected (NotDetected) Influenza Type A (PCR) Not Detected (Not Detectd) Influenza Type B (PCR) Not Detected (Not Detectd) RSV (PCR) Not Detected (Not Detectd) SARS-CoV-2 (PCR) Not Detected (Not Detectd) 05/07/24 Range/Units 13:37 Urine Color Urine Appearance (Clear) Urine pH (5.0-8.0) Ur Specific [place] (1.001-1.035) Urine Protein (Negative) Urine Glucose (UA) (Negative) Urine Ketones (Negative) Urine Blood (Negative) Urine Nitrite (Negative) Urine Bilirubin (Negative) Urine Urobilinogen (<2.0) mg/dL Ur Leukocyte Esterase (Negative) Urine HCG, Qual Not Detected (Not Detectd) Urine Opiates Screen (NotDetected) Ur Oxycodone Screen (NotDetected) Urine Methadone Screen (NotDetected) Ur Barbiturates Screen (NotDetected) U Tricyclic Antidepress (NotDetected) Ur Phencyclidine Scrn (NotDetected) Ur Amphetamines Screen (NotDetected) U Methamphetamines Scrn (NotDetected) U Benzodiazepines Scrn (NotDetected) Urine Cocaine Screen (NotDetected) U Marijuana (THC) Screen (NotDetected) Influenza Type A (PCR) (Not Detectd) Influenza Type B (PCR) (Not Detectd) RSV (PCR) (Not Detectd) SARS-CoV-2 (PCR) (Not Detectd) Disposition Clinical Impression: Suicidal thoughts, Major depressive disorder, recurrent severe without psychotic features, Persistent depressive disorder, Generalized anxiety disorder, Major depressive disorder, Alcohol use disorder Disposition: TRANSFER TO PSYCH HOSP/UNIT Condition: Fair
[2024-05-07] MEDS: LORazepam 1 MG TAB PO STA (07:48)
[2024-05-07 12:18] LABS: Influenza A Not Detected (Not Detectd); Influenza B Not Detected (Not Detectd); RSV Not Detected (Not Detectd)
[2024-05-07 14:23] LABS: Amphetamine Screen,Urine Not Detected (NotDetected); Barbiturate Screen,Urine Not Detected (NotDetected); Benzodiazepines Screen,Urine Detected (NotDetected); Cocaine Screen,Urine Not Detected (NotDetected); Methadone Screen, Urine Not Detected (NotDetected); Opiate Screen,Urine Not Detected (NotDetected); Oxycodone Screen, Urine Not Detected (NotDetected); Phencyclidine Screen,Urine Not Detected (NotDetected); Tricyclic Antidepressant,Urine Not Detected (NotDetected); Urn Cannabinoid Scrn Not Detected (NotDetected)
[2024-05-07] MEDS ORDERED: OLANZapine 10 MG VIAL IM PRN (15:23)
[2024-05-07] MEDS ORDERED: MAG HYDROX/AL HYDROX/SIMETH 355 ML BOTTLE PO PRN (15:23)
[2024-05-07] MEDS ORDERED: ACETAMINOPHEN TAB 325 MG TAB PO PRN (15:23)
[2024-05-07] MEDS ORDERED: MAGNESIUM HYDROXIDE 2,400 MG/30 ML CUP PO PRN (15:23)
[2024-05-07] MEDS ORDERED: hydrOXYzine HCL 50 MG/ML 1 ML VIAL IM PRN (15:31)
[2024-05-07 15:55] LABS: Appearance,Urine Clear (Clear); Bilirubin,Urine Negative (Negative); Blood,Urine Negative (Negative); Color,Urine Yellow; Glucose,Urine (UA) Negative (Negative); Ketones,Urine Negative (Negative); Leukocyte Esterase,Urine Negative (Negative); Nitrite,Urine Negative (Negative); PH, Urine 5.5 (5.0-8.0); Protein,Urine Negative (Negative)
[2024-05-07] MEDS ORDERED: LORazepam 1 MG TAB PO PRN (16:52)
[2024-05-07] MEDS: busPIRone HCl 10 MG TAB PO SCH (21:21)
[2024-05-07] MEDS: MELATONIN 5 MG TABLET PO SCH (21:21)
[2024-05-08] MEDS: LORATADINE 10 MG TAB PO SCH (08:24)
[2024-05-08] MEDS: NICOTINE 14MG/24HR PATCH TRANSDERM SCH (08:24)
[2024-05-08] MEDS: FLUoxetine HCL 20 MG CAP PO SCH (08:25)
--- NOTE | 2024-05-08 08:25 | P.MDCNMH ---
History of Present Illness H&P Date: 05/08/24 Patient is a 38-year-old female with past medical history of hypertension, dyslipidemia, chronic right hip pain, seasonal allergies, depression, anxiety, alcohol use disorder, prediabetes, presents to [facility] for mental health concerns. She has been admitted to the [facility] for further workup and management. [facility] consulted for medical management of this patient. On admission she was afebrile, tachycardic at times up to 101, satting well on room air, blood pressure 134/91. Reviewed blood work: UA negative for UTI, UDS positive for benzos, viral panel negative. CBC, CMP, A1c, lipid panel, TSH pending Patient denies shortness of breath, chest pain, abdominal pain, admits having her seasonal allergy flare, declined nasal spray, would like to continue with Claritin daily. Pertinent positives and negatives as discussed in HPI, a complete review of systems was performed and all other systems are negative. Patient seen and examined at bedside. Vital signs reviewed General: nontoxic, no distress, appears at stated age Derm: warm, dry Head: atraumatic, normocephalic, symmetric Eyes: EOMI, no lid lag, anicteric sclera, pupils equal round reactive to light ENT: Nose and ears atraumatic Neck: No thyromegaly, supple Mouth: no lip lesion, mucus membranes moist Cardiovascular: S1S2 reg, no murmur, no edema Lungs: clear to auscultation bilateral, no rhonchi, no rales, no wheeze, no accessory muscle use Abdominal: soft, nontender to palpation, no guarding, no appreciable organomegaly Ext: no gross muscle atrophy, muscle strength muscle strength 5 out of 5 in all 4 extremities, no contractures Neuro: CN II-XII grossly intact Psych: Alert, oriented, appropriate affect Assessment/Plan: Seasonal allergies: Continue Claritin 10 mg PO QD. Prediabetes: Follow-up A1c, carb consistent diet Dyslipidemia: Lipid panel pending, no statin recommended at this time patient is<40 years old HTN: Currently not on medication. BP 143/98, will start on amlodipine 5 Chronic right hip pain: Ibuprofen 600 mg PO Q6H. . Tobacco dependence: Nicotine patch, recommend smoking cessation Alcohol use disorder: CIWA with Ativan, thiamine, folic acid, multivitamins Past Medical History Past Medical History: Hyperlipidemia, Hypertension History of Any Multi-Drug Resistant Organisms: None Reported Past Surgical History: Orthopedic Surgery Additional Past Surgical History / Comment(s): right knee Past Anesthesia/Blood Transfusion Reactions: No Reported Reaction Past Psychological History: Anxiety, Depression Smoking Status: Never smoker Past Alcohol Use History: Daily Additional Past Alcohol Use History / Comment(s): pt reports that she was sober from ETOH x60 days and relapsed on (05/02/24). pt reports that she has been drinking daily since then. Past Drug Use History: None Reported - Past Family History Mother Family Medical History: Diabetes Mellitus, Musculoskeletal Disorder Additional Family Medical History / Comment(s): Mother is Father Additional Family Medical History / Comment(s): pt reports father has [place]'s disease and states that he is still living. Medications and Allergies Home Medications Medication Instructions Recorded Confirmed Type FLUoxetine HCL [PROzac] 40 mg PO DAILY 15 Days #30 cap 03/11/24 05/07/24 Rx Loratadine [Claritin] 10 mg PO DAILY 15 Days #15 tab 03/11/24 05/07/24 Rx Melatonin 10 mg PO HS 15 Days #30 tab 03/11/24 05/07/24 Rx Naltrexone HCl [Revia] 50 mg PO HS 30 Days #30 tab 03/11/24 05/07/24 Rx busPIRone HCl [Buspar] 20 mg PO BID 15 Days #60 tab 03/11/24 05/07/24 Rx hydrOXYzine pamoate [Vistaril] 25 mg PO Q8HR PRN 05/07/24 05/07/24 History Allergies Allergy/AdvReac Type Severity Reaction Status Date / Time lisinopril AdvReac Cough Verified 05/07/24 12:08 Physical Exam Vitals: Vital Signs Temp Pulse Resp BP Pulse Ox 05/08/24 06:12 98.1 F 109 H 16 143/98 97 05/07/24 21:20 98.2 F 14 135/102 100 05/07/24 17:00 98.6 F 90 22 139/91 96 Intake and Output 05/07/24 05/08/24 05/08/24 22:59 06:59 14:59 Other: Weight 112.973 kg Cranial Nerve Examination - Cranial Nerves Cranial Nerve II- Optic: Intact Cranial Nerve III- Oculomotor: Intact Cranial Nerve IV- Trochlear: Intact Cranial Nerve V- Trigeminal: Intact Cranial Nerve - Abducens: Intact Cranial Nerve VII- Facial: Intact Cranial Nerve VIII- Auditory: Intact Cranial Nerve IX- Glossopharyngeal: Intact Cranial Nerve X- Vagus: Intact Cranial Nerve XI- Accessory: Intact Cranial Nerve XII- Hypoglossal: Intact Results Labs: Abnormal Lab Results - Last 24 Hours (Table) 05/07/24 Range/Units 13:37 U Benzodiazepines Scrn Detected H (NotDetected)
[2024-05-08] MEDS: amLODIPine 5 MG TAB PO SCH (08:26)
[2024-05-08] MEDS: hydrOXYzine pamoate 25 MG CAP PO PRN (08:26)
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
[2024-05-08] MEDS: NALTREXONE HCL 50 MG TAB PO SCH (12:47)
[2024-05-08 13:30] LABS: Basophils # (A) 0.1 k/uL (0-0.2); Basophils % (A) 1 %; Eosinophils # (A) 0.3 k/uL (0-0.7); Eosinophils % (A) 3 %; HCT 44.4 % (34.0-46.0); HGB 14.9 gm/dL (11.4-16.0); Lymphocytes # (A) 2.7 k/uL (1.0-4.8); Lymphocytes % (A) 28 %; MCH 28.6 pg (25.0-35.0); MCHC 33.6 g/dL (31.0-37.0); MCV 85.2 fL (80.0-100.0); Mean Platelet Volume 6.7; Monocytes # (A) 0.3 k/uL (0-1.0); Monocytes % (A) 4 %; Neutrophils # (A) 6.2 k/uL (1.3-7.7); Neutrophils % (A) 64 %; Platelet Count 353 k/uL (150-450); RBC 5.21 m/uL (3.80-5.40); RDW 13.1 % (11.5-15.5); WBC 9.6 k/uL (3.8-10.6)
[2024-05-08 13:50] LABS: ALT 50 U/L (4-34); AST 37 U/L (14-36); African American GFR (CKD) >90 (>60 ml/min/1.73 sqM); Albumin 4.5 g/dL (3.5-5.0); Alkaline Phosphatase 94 U/L (38-126); Anion Gap 13 mmol/L; Blood Urea Nitrogen 11 mg/dL (7-17); Calcium 9.4 mg/dL (8.4-10.2); Carbon Dioxide 27 mmol/L (22-30); Chloride 97 mmol/L (98-107); Glucose 108 mg/dL (74-99); Non-African American GFR(CKD) >90 (>60 ml/min/1.73 sqM); Potassium 3.7 mmol/L (3.5-5.1); Sodium 137 mmol/L (137-145); Total Protein 7.7 g/dL (6.3-8.2)
[2024-05-08 19:37] LABS: Chol/HDL Ratio 4.65 Ratio; LDL Cholesterol,Calculated 100.7 mg/dL (0.0-131.0)
[2024-05-08] MEDS: hydrOXYzine pamoate 25 MG CAP PO SCH (20:24)
[2024-05-08] MEDS: busPIRone HCl 10 MG TAB PO SCH (20:24)
[2024-05-09] MEDS: FLUoxetine HCL 20 MG CAP PO SCH (08:03)
[2024-05-09] MEDS: FLUoxetine HCL 20 MG CAP PO STA (11:02)
--- NOTE | 2024-05-09 12:34 | P.PN ---
Progress Note - Text Progress Note Date: 05/09/24 Interval History: Patient was seen in bed and was directable and agreeable to speak with credit underwriter in the office. Patient was notably more reactive today, she has been attending groups. She reports an increase in her depression and anxiety today directly related to her thoughts about her life. She states she has not called her job to confirm she can still work however she was encouraged to contact them and let them know that she is in the hospital. She reports sleeping better with the Vistaril but does report some grogginess today. She notes some environmental noises keeping her up intermittently and she was encouraged to ask for earplugs if the noises persist tonight. Discussed patient's lab work as she has both elevated lipid panel and A1c and she was encouraged to follow-up with her family doctor for further recommendations and to change her lifestyle with more exercise and dietary choices in the interim. She was also encouraged to speak to her therapist regarding help with these lifestyle changes. At this time patient denies any suicidal or homicidal ideations, intent or plan. Patient denies any auditory, visual hallucinations and denies any paranoia or delusions. Patient denies any side effects from the medications and has been compliant with meds. Mental Status Exam: General Appearance: Patient appears to be stated age is alert, directable, and cooperative. She wears glasses with fair grooming Behavior: Patient is calmly seated without any agitated behavior. Speech: Patient's speech is fluent and nonpressured. Mood/Affect: Mood is improving mildly, affect is congruent and more reactive however still blunted. Suicidality/Homicidality: Patient denies having any suicidal or homicidal ideation intent or plan. Perceptions: Patient denies any visual hallucinations and denies any auditory hallucinations Though content/process: There is no evidence of any delusional thought content and thought process is linear and logical. Memory and concentration: AOX3, grossly intact for the purposes of this session Judgment and insight: Improving mildly Assessment Major depressive disorder, recurrent, moderate Persistent depressive disorder Alcohol use disorder, mild Generalized anxiety disorder Plan: -Patient continues to meet criteria for inpatient psychiatric admission for symptom stabilization and safety. Patient has signed adult voluntary form and medication consent and was placed in patient's chart. -Medications: Increase Prozac to 60 mg daily for depression/anxiety, increase BuSpar to 20 mg twice daily for anxiety, continue naltrexone 50 mg daily for alcohol cravings, melatonin 10 mg at bedtime for insomnia, Vistaril 50 mg at bedtime for insomnia -When necessary hydroxyzine and Zyprexa for agitation/aggression. -Labs: A1c and lipid panel both elevated and discussed with patient to follow-up with family doctor for further recommendations -SW on board for discharge planning. Encouraged the patient to participate in milieu. Anticipate discharge early next week back home with roommates
[2024-05-09] MEDS: diphenhydrAMINE 25 MG CAP PO SCH (20:49)
[2024-05-09] MEDS: busPIRone HCl 10 MG TAB PO SCH (20:50)
[2024-05-10] MEDS: OLANZapine 5 MG TAB PO PRN (06:17)
[2024-05-10] MEDS: IBUPROFEN 600 MG TAB PO PRN (08:53)
[2024-05-10] MEDS: FLUoxetine HCL 20 MG CAP PO SCH (08:53)
--- NOTE | 2024-05-10 11:33 | P.PN ---
Progress Note - Text Progress Note Date: 05/10/24 Interval History: Patient was seen in bed and was directable and agreeable to speak with medical underwriter in the office. She continues to express improvement in terms of mood, rating depression and anxiety at both moderate levels today. She does express some difficulties with sleep, waking up at 4 AM and receiving a as needed medication. She mentions at home sleeping previously for 8 hours. She has not contacted her job just yet but was encouraged to. She was goal oriented today, expressing a desire to find a new job and fillong out job applications. At this time patient denies any suicidal or homicidal ideations, intent or plan. Patient denies any auditory, visual hallucinations and denies any paranoia or delusions. Patient denies any side effects from the medications and has been compliant with meds. Mental Status Exam: General Appearance: Patient appears to be stated age is alert, directable, and cooperative. She wears glasses Behavior: Patient is calmly seated without any agitated behavior. Speech: Patient's speech is fluent and nonpressured. Mood/Affect: Mood is improving mildly, affect is congruent and blunted but reactive. Suicidality/Homicidality: Patient denies having any suicidal or homicidal ideation intent or plan. Perceptions: Patient denies any visual hallucinations and denies any auditory hallucinations Though content/process: There is no evidence of any delusional thought content and thought process is linear and goal-directed. Memory and concentration: AOX3, grossly intact for the purposes of this session Judgment and insight: Improving mildly Assessment Major depressive disorder, recurrent, moderate Persistent depressive disorder Alcohol use disorder, mild Generalized anxiety disorder Plan: -Patient continues to meet criteria for inpatient psychiatric admission for symptom stabilization and safety. Patient has signed adult voluntary form and medication consent and was placed in patient's chart. -Medications: Increase Prozac to 80 mg daily for depression/anxiety tomorrow, increase BuSpar to 15 mg 3 times daily today for anxiety, continue naltrexone 50 mg daily for alcohol cravings, melatonin 10 mg at bedtime for insomnia, increase Vistaril to 100 mg at bedtime for insomnia -When necessary hydroxyzine and Zyprexa for agitation/aggression. -Labs: A1c and lipid panel both elevated, patient encouraged to follow-up with her family doctor for further recommendations and to modify her lifestyle in the interim -SW on board for discharge planning. Encouraged the patient to participate in milieu. Anticipate discharge back home with roommates on Monday. Patient to follow-up with [facility]
[2024-05-10] MEDS: busPIRone HCl 5 MG TAB PO SCH (17:40)
[2024-05-10] MEDS: hydrOXYzine pamoate 25 MG CAP PO SCH (20:55)
[2024-05-11] MEDS: FLUoxetine HCL 20 MG CAP PO SCH (08:05)
--- NOTE | 2024-05-11 10:28 | P.PN ---
Progress Note - Text Progress Note Date: 05/11/24 Interval history: Patient was seen wandering the hallways and was directable and agreeable to s peak with personal lines underwriter. She claims that she has been going to some groups. Claims that she is doing a bit better today with her medications. She claims that she does not want adjustment with her medications at this time. Claims that her anxiety has been improving and also mood is well. She was fairly concrete during interview. Claims that she slept fairly last night has been eating well. At this time patient denies any suicidal or homicidal ideations intent or plan. Denies any Auditory or visual hallucinations. Patient denies any side effects from the medications and has been compliant with meds. Mental status exam: General Appearance: Patient appears to be wearing glasses, stated age is alert, directable, and cooperative. Behavior: No agitated behavior. Patient is calm and directable times to cooperate Speech: Patient's speech is fluent and nonpressured. Mood/Affect: Mood is improving mildly, affect is congruent and constricted. Suicidality/Homicidality: Patient denies having any suicidal or homicidal ideation intent or plan. Perceptions: Patient denies any auditory or visual hallucinations. Though content/process: There is no evidence of any delusional thought content a nd thought process is linear and goal-directed. Fairly concrete Memory and concentration: AOX3, grossly intact for the purposes of this session Judgment and insight: improving mildly Assessment/Plan: Continue with current diagnosis. Patient continues to meet criteria for inpatient psychiatric admission for symptom stabilization and safety. Patient will be maintained on current psychotropic medication regimen. Monitor for medication compliance and for any psychotropic medication side effects. Will continue to monitor ongoing response to treatment. Encouraged participation in milieu.
--- NOTE | 2024-05-12 11:21 | P.PN ---
Progress Note - Text Progress Note Date: 05/12/24 Interval history: Patient was seen doing a puzzle in the unge and was directable and agreeable to speak with caption writer. She claims that she is doing a bit better today with regards to her mood and anxiety. States that she was able to sleep fairly throughout the night. Remains fairly concrete, claims that she might be discharged tomorrow if she is doing well. Did not have any overnight complaints, claims that she has been eating meals improvement in hygiene and grooming. At this time patient denies any suicidal or homicidal ideations intent or plan. Denies any Auditory or visual hallucinations. Patient denies any side effects from the medications and has been compliant with meds. Mental status exam: General Appearance: Patient appears to be wearing glasses, stated age is alert, directable, and cooperative. Behavior: No agitated behavior. Patient is calm and directable times to cooperate, improving mildly Speech: Patient's speech is fluent and nonpressured. Mood/Affect: Mood is improving mildly, affect is congruent and constricted. Improving mildly Suicidality/Homicidality: Patient denies having any suicidal or homicidal ideation intent or plan. Perceptions: Patient denies any auditory or visual hallucinations. Though content/process: There is no evidence of any delusional thought content and thought process is linear and goal-directed. Fairly concrete, improving mildly Memory and concentration: AOX3, grossly intact for the purposes of this session Judgment and insight: improving mildly Assessment/Plan: Continue with current diagnosis. Patient continues to meet criteria for inpatient psychiatric admission for symptom stabilization and safety. Patient will be maintained on current psychotropic medication regimen. Monitor for medication compliance and for any psychotropic medication side effects. Will continue to monitor ongoing response to treatment. Encouraged participation in milieu.
[2024-05-12] MEDS: busPIRone HCl 10 MG TAB PO SCH (17:08)
[2024-05-13 07:26] VITALS: BP 123/86; PULSE 84; RESP 16; TEMP 97.8
[2024-05-13] MEDS: LORazepam 1 MG TAB PO PRN (09:34)
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
== END 2024-05-13 12:10 | disposition home or self-care (01) | DRG 751 ==
LOC: EC 03:13 → 3MHU 15:13
PROVIDERS: ADMIT Psychiatry & Neurology Psychiatry; ATTEND Psychiatry & Neurology Psychiatry
DX: F33.1 Major depressive disorder, recurrent, moderate (principal); F10.129 Alcohol abuse with intoxication, unspecified; F41.1 Generalized anxiety disorder; I10 Essential (primary) hypertension; E78.5 Hyperlipidemia, unspecified; J30.2 Other seasonal allergic rhinitis; R73.03 Prediabetes; G89.29 Other chronic pain; M25.551 Pain in right hip; R45.851 Suicidal ideations; F17.200 Nicotine dependence, unspecified, uncomplicated; Z56.0 Unemployment, unspecified; Z59.71 Insufficient health insurance coverage; Z91.52 Personal history of nonsuicidal self-harm; Z79.899 Other long term (current) drug therapy
CPT/HCPCS: 80053; 80061; 80306; 81003; 81025; 82075; 83036; 84443; 85025; 87636; 99285

== ENCOUNTER 2024-06-05 22:53 | Inpatient (IN) | payer OTHER ==
[2024-06-05 23:29] LABS: Appearance,Urine Clear (Clear); Bilirubin,Urine Negative (Negative); Blood,Urine Negative (Negative); Color,Urine Colorless; Glucose,Urine (UA) Negative (Negative); Ketones,Urine 1+ (Negative); Leukocyte Esterase,Urine Negative (Negative); Nitrite,Urine Negative (Negative); Protein,Urine Negative (Negative); Specific Gravity,Urine 1.003 (1.001-1.035); Urobilinogen,Urine <2.0 mg/dL (<2.0)
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
[2024-06-06] MEDS: busPIRone HCl 10 MG TAB PO STA (01:16)
[2024-06-06] MEDS: AZITHROMYCIN 500 MG TAB PO STA (02:37)
[2024-06-06] MEDS: cefTRIAXone 250 MG VIAL IM STA (02:37)
[2024-06-06] MEDS: hydrOXYzine HCL 25 MG TAB PO STA (02:45)
[2024-06-06] MEDS ORDERED: EMTRICITABINE/TENOFOVIR 200MG/300MG PO SCH (03:00)
[2024-06-06] MEDS ORDERED: EMTRICITABINE/TENOFOVIR (TDF) 1 EACH, DOLUTEGRAVIR SODIUM 50 MG PO SCH (03:00)
[2024-06-06] MEDS: ONDANSETRON ODT 4 MG TAB PO STA ×2 (03:24→11:23)
[2024-06-06] MEDS: DOLUTEGRAVIR SODIUM 50 MG TABLET PO SCH (04:30)
[2024-06-06] MEDS: FAMOTIDINE 20 MG TAB PO STA (07:50)
[2024-06-06] MEDS ORDERED: HALOPERIDOL LACTATE 5 MG/ML 1 ML VIAL IM PRN (14:15)
[2024-06-06] MEDS ORDERED: ACETAMINOPHEN TAB 325 MG TAB PO PRN (14:15)
[2024-06-06] MEDS ORDERED: MAGNESIUM HYDROXIDE 2,400 MG/30 ML CUP PO PRN (14:15)
[2024-06-06] MEDS: LORazepam 1 MG TAB PO PRN (15:45)
[2024-06-06] MEDS: busPIRone HCl 10 MG TAB PO SCH (15:45)
[2024-06-06] MEDS: hydrOXYzine pamoate 25 MG CAP PO SCH (21:17)
[2024-06-06] MEDS: MELATONIN 5 MG TABLET PO SCH (21:17)
[2024-06-06] MEDS: IBUPROFEN 600 MG TAB PO PRN (21:19)
[2024-06-07] MEDS ORDERED: EMTRICITABINE/TENOFOVIR 200MG/300MG PO SCH (03:00)
[2024-06-07] MEDS: LORATADINE 10 MG TAB PO SCH (09:37)
[2024-06-07] MEDS: NALTREXONE HCL 50 MG TAB PO SCH (09:37)
[2024-06-07] MEDS: EMTRICITABINE/TENOFOVIR 200MG/300MG PO SCH (09:37)
[2024-06-07] MEDS: amLODIPine 5 MG TAB PO SCH (09:37)
[2024-06-07] MEDS: NICOTINE 14MG/24HR PATCH TRANSDERM SCH (09:38)
[2024-06-07] MEDS: DOLUTEGRAVIR SODIUM 50 MG TABLET PO SCH (09:38)
[2024-06-07 10:50] LABS: Basophils % (A) 1 %; Eosinophils # (A) 0.3 k/uL (0-0.7); Eosinophils % (A) 4 %; HCT 44.2 % (34.0-46.0); HGB 14.2 gm/dL (11.4-16.0); Lymphocytes # (A) 2.6 k/uL (1.0-4.8); Lymphocytes % (A) 39 %; MCH 27.5 pg (25.0-35.0); MCHC 32.2 g/dL (31.0-37.0); MCV 85.2 fL (80.0-100.0); Mean Platelet Volume 6.9; Monocytes # (A) 0.4 k/uL (0-1.0); Monocytes % (A) 6 %; Neutrophils # (A) 3.2 k/uL (1.3-7.7); Neutrophils % (A) 49 %; Platelet Count 308 k/uL (150-450); RBC 5.18 m/uL (3.80-5.40); RDW 13.8 % (11.5-15.5); WBC 6.5 k/uL (3.8-10.6)
[2024-06-07 11:03] LABS: ALT 18 U/L (4-34); AST 25 U/L (14-36); African American GFR (CKD) >90 (>60 ml/min/1.73 sqM); Albumin 4.3 g/dL (3.5-5.0); Alkaline Phosphatase 54 U/L (38-126); Anion Gap 8 mmol/L; Bilirubin, Delta 0.1 mg/dL (0.0-0.2); Bilirubin,Unconjugated 0.4 mg/dL (0.0-1.1); Blood Urea Nitrogen 6 mg/dL (7-17); Calcium 9.3 mg/dL (8.4-10.2); Carbon Dioxide 30 mmol/L (22-30); Chloride 100 mmol/L (98-107); Glucose 106 mg/dL (74-99); Non-African American GFR(CKD) >90 (>60 ml/min/1.73 sqM); Potassium 3.8 mmol/L (3.5-5.1); Sodium 138 mmol/L (137-145); Total Bilirubin 0.5 mg/dL (0.2-1.3); Total Protein 7.1 g/dL (6.3-8.2)
[2024-06-07] MEDS: levonorgestreL 1.5 MG TABLET PO STA (13:45)
[2024-06-07] MEDS: cefTRIAXone 250 MG VIAL IM STA (13:45)
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
[2024-06-07] MEDS: FLUoxetine HCL 20 MG CAP PO SCH (14:26)
--- NOTE | 2024-06-07 14:39 | XR ---
EXAMINATION TYPE: XR knee complete LT DATE OF EXAM: 06/07/2024 2:27 PM COMPARISON: None. CLINICAL INDICATION: Female, 38 years old with history of fall/pain, pain TECHNIQUE: XR knee complete LT XX views were obtained. FINDINGS: There is no acute fracture/dislocation evident. The joint spaces appear within normal limits. The o verlying soft tissue appears unremarkable. IMPRESSION: No acute fracture or dislocation. [facility], , 06/07/2024 2:37 PM
[2024-06-07 15:10] LABS: Chol/HDL Ratio 4.83 Ratio; LDL Cholesterol,Calculated 165.3 mg/dL (0.0-131.0)
[2024-06-07 15:11] LABS: Amphetamine Screen,Urine Not Detected (NotDetected); Barbiturate Screen,Urine Not Detected (NotDetected); Benzodiazepines Screen,Urine Detected (NotDetected); Cocaine Screen,Urine Not Detected (NotDetected); Methadone Screen, Urine Not Detected (NotDetected); Opiate Screen,Urine Not Detected (NotDetected); Oxycodone Screen, Urine Detected (NotDetected); Phencyclidine Screen,Urine Not Detected (NotDetected); Tricyclic Antidepressant,Urine Not Detected (NotDetected); Urn Cannabinoid Scrn Detected (NotDetected)
[2024-06-07] MEDS: busPIRone HCl 10 MG TAB PO SCH (21:28)
[2024-06-07] MEDS: diphenhydrAMINE 25 MG CAP PO SCH (21:28)
[2024-06-08] MEDS: hydrOXYzine pamoate 25 MG CAP PO PRN (13:39)
[2024-06-08] MEDS ORDERED: LORazepam 1 MG TAB PO PRN ×3 (15:33)
--- NOTE | 2024-06-08 15:33 | P.PN ---
Progress Note - Text Progress Note Date: 06/08/24 Interval history: Patient was seen bedside and was directable and agreeable to speak with chart writer. She displays poor eye contact and has downward gaze while speaking. She says that her mood is "fine ". She says that she was drinking rubbing alcohol from Monday to prior to admission. She denies alcohol withdrawal symptoms currently. She reports fair sleep and appetite. Patient was resting prior to assessment and resumed resting after speaking with this provider. At this time patient denies any suicidal or homicidal ideations intent or plan. Denies any Auditory or visual hallucinations. Patient denies any side effects from the medications and has been compliant with meds. Mental status exam: General Appearance: Patient appears to be stated age is alert, directable, and cooperative. Poor hygiene. Behavior: No agitated behavior. Patient is calm and directable. Downward gaze Speech: Patient's speech is fluent and nonpressured. Mood/Affect: Mood is improving mildly, affect is congruent and constricted. Suicidality/Homicidality: Patient denies having any suicidal or homicidal ideation intent or plan. Perceptions: Patient denies any auditory or visual hallucinations. Though content/process: There is no evidence of any delusional thought content and thought process is linear and goal-directed. Memory and concentration: AOX3, grossly intact for the purposes of this session Judgment and insight: improving mildly Assessment/Plan: Continue with current diagnosis. Patient continues to meet criteria for inpatient psychiatric admission for symptom stabilization and safety.[Patient will be maintained on current psychotropic medication regimen.] Has been scoring zeros on CIWA. monitor for medication compliance and for any psychotropic medication side effects. Will continue to monitor ongoing response to treatment. Encouraged participation in milieu.
--- NOTE | 2024-06-08 20:29 | P.MDCNMH ---
History of Present Illness H&P Date: 06/08/24 Patient is a 38-year-old female with no significant past medical history currently in mental health unit. Sound physicians consulted for medical management. She denies any chest pain, shortness of breath, abdominal pain, nausea, vomiting, urinary or bowel complaints. She denies any smoking, does drink alcohol, unable to specify how much. She also smokes marijuana. She claims that she did have a fall yesterday and hurt her left knee. She has been able to ambulate otherwise. Knee x-rays did not show any acute fractures. She continues to have some pain on the medial aspect of her knee. Denies any swelling. Labs reviewed, WBC 6.5, hemoglobin 14.2, creatinine 0.72, A1c 5.8, to yissel cholesterol 262, LDL 165, not fasting, TSH 1.18, toxicology positive for oxycodone, benzodiazepine and marijuana, urinalysis negative, COVID-19 negative. Pertinent positives and negatives as discussed in HPI, a complete review of systems was performed and all other systems are negative. Patient seen and examined at bedside. Vital signs reviewed General: nontoxic, no distress, appears at stated age, obese Derm: warm, dry Head: atraumatic, normocephalic, symmetric Eyes: EOMI, no lid lag, anicteric sclera, pupils equal round reactive to light ENT: Nose and ears atraumatic Neck: No thyromegaly, supple Mouth: no lip lesion, mucus membranes moist Cardiovascular: S1S2 reg, no murmur, no edema Lungs: clear to auscultation bilateral, no rhonchi, no rales, no wheeze, no accessory muscle use Abdominal: soft, nontender to palpation, no guarding, no appreciable organomegaly Ext: no gross muscle atrophy, muscle strength muscle strength 5 out of 5 in all 4 extremities, no contractures Neuro: CN II-XII grossly intact Psych: Alert, oriented, appropriate affect Assessment/Plan: Active: Mechanical fall Left knee pain -No acute fractures -Tylenol 650 every 4 hours as needed for pain, ibuprofen 600 mg every 6 hours as needed for pain -I will order 4% lidocaine patch Hypertension? -Patient on amlodipine 5 mg daily, continue -However, she denies any history of hypertension Alcohol use disorder -Continue naltrexone 50 mg daily, -Ativan oral as needed per CIWA scores -Monitor for sedation -I have ordered thiamine 100 mg, folic acid 1 mg daily Dyslipidemia -Lipid panel taken during the day -Needs fasting lipid panel outpatient, may benefit from statin therapy Depression Anxiety -Management per psychiatry Thank you for allowing us to participate in the care of this pleasant patient. Do not hesitate to contact us with questions. Someone can be reached from the [facility] hospitalist group all hours of the day at [phone] or via [employer]. Past Medical History Past Medical History: Hypertension History of Any Multi-Drug Resistant Organisms: None Reported Past Surgical History: Orthopedic Surgery Additional Past Surgical History / Comment(s): right knee Past Anesthesia/Blood Transfusion Reactions: No Reported Reaction Past Psychological History: Anxiety, Depression Smoking Status: Never smoker Past Alcohol Use History: Daily Additional Past Alcohol Use History / Comment(s): pt reports struggling with ETOH use but was evasive regarding amounts. States she has been drinking rubbing alcohol, but denies drinking liquor, beer, or wine. Past Drug Use History: Marijuana Additional Drug Use History / Comment(s): States daily marijuana use - Past Family History Mother Family Medical History: Diabetes Mellitus, Musculoskeletal Disorder Additional Family Medical History / Comment(s): Mother is Father Additional Family Medical History / Comment(s): pt reports father has [place]'s disease and states that he is still living. Medications and Allergies Home Medications Medication Instructions Recorded Confirmed Type Melatonin 10 mg PO HS 15 Days #30 tab 03/11/24 06/06/24 Rx FLUoxetine HCL [PROzac] 80 mg PO DAILY 30 Days #120 cap 05/13/24 06/06/24 Rx Loratadine [Claritin] 10 mg PO DAILY 15 Days #15 tab 05/13/24 06/06/24 Rx Naltrexone HCl [Revia] 50 mg PO DAILY 30 Days #30 tab 05/13/24 06/06/24 Rx amLODIPine [Norvasc] 5 mg PO DAILY #30 tab 05/13/24 06/06/24 Rx busPIRone HCl [Buspar] 20 mg PO TID 30 Days #180 tab 05/13/24 06/06/24 Rx diphenhydrAMINE [Benadryl] 25 mg PO HS 30 Days #30 cap 05/13/24 06/06/24 Rx hydrOXYzine pamoate [Vistaril] 25 mg PO Q8HR PRN 45 Days #160 cap 05/13/24 06/06/24 Rx hydrOXYzine pamoate [Vistaril] 100 mg PO HS cap 05/13/24 06/06/24 Rx Allergies Allergy/AdvReac Type Severity Reaction Status Date / Time lisinopril AdvReac Cough Verified 06/06/24 09:22 Physical Exam Vitals: Vital Signs Temp Pulse Resp BP Pulse Ox 06/08/24 09:41 98 F 85 128/89 06/07/24 21:28 98 F 91 12 131/89 97 Cranial Nerve Examination - Cranial Nerves Cranial Nerve II- Optic: Intact Cranial Nerve III- Oculomotor: Intact Cranial Nerve IV- Trochlear: Intact Cranial Nerve V- Trigeminal: Intact Cranial Nerve - Abducens: Intact Cranial Nerve VII- Facial: Intact Cranial Nerve VIII- Auditory: Intact Cranial Nerve IX- Glossopharyngeal: Intact Cranial Nerve X- Vagus: Intact Cranial Nerve XI- Accessory: Intact Cranial Nerve XII- Hypoglossal: Intact Results CBC & Chem 7: 06/07/24 10:15 06/07/24 10:15
[2024-06-08] MEDS: LIDOCAINE 4% PATCH TOPICAL ONE (21:19)
[2024-06-08] MEDS: THIAMINE 100 MG TAB PO SCH (21:24)
[2024-06-08] MEDS: FOLIC ACID 1 MG TAB PO SCH (21:24)
--- NOTE | 2024-06-09 14:57 | P.PN ---
Progress Note - Text Progress Note Date: 06/09/24 Interval history: Patient was seen bedside and was directable and agreeable to speak with junior underwriter. Patient states that her mood is "better than yesterday". She states that she is just slightly anxious about having to pay bills and not having a job. She is considering finding work in the factory or at a restaurant business. Patient continues to be somewhat hopeless about her situation. She asks if her BuSpar could be increased due to the level of anxiety she is experiencing. Also discus sed increasing Prozac with which patient was comfortable. Patient denies symptoms of alcohol withdrawal, scoring 0 on CIWA At this time patient denies any suicidal or homicidal ideations intent or plan. Denies any Auditory or visual hallucinations. Patient denies any side effects from the medications and has been compliant with meds. Mental status exam: General Appearance: Patient appears to be stated age is alert, directable, and cooperative. Poor hygiene. Behavior: No agitated behavior. Patient is calm and directable. Downward gaze Speech: Patient's speech is fluent and nonpressured. Mood/Affect: Mood is improving mildly, affect is congruent and constricted. Suicidality/Homicidality: Patient denies having any suicidal or homicidal ideation intent or plan. Perceptions: Patient denies any auditory or visual hallucinations. Though content/process: There is no evidence of any delusional thought content and thought process is linear and goal-directed. Memory and concentration: AOX3, grossly intact for the purposes of this session Judgment and insight: improving mildly Assessment/Plan: Continue with current diagnosis. Patient continues to meet criteria for inpatient psychiatric admission for symptom stabilization and safety. Discontinue CIWA. Increase Prozac to 40 mg daily for depression and anxiety. Increase BuSpar to 7.5 mg 3 times a day for anxiety. Continue other psychotropic medications. Monitor for medication compliance and for any psychotropic medication side effects. Will continue to monitor ongoing response to treatment. Encouraged participation in milieu.
[2024-06-09] MEDS: FLUoxetine HCL 20 MG CAP PO ONE (15:54)
[2024-06-09] MEDS: busPIRone HCl 5 MG TAB PO SCH (15:55)
[2024-06-10] MEDS: LIDOCAINE 4% PATCH TOPICAL SCH (02:05)
[2024-06-10] MEDS: FLUoxetine HCL 20 MG CAP PO SCH (09:26)
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
[2024-06-10] MEDS: MAG HYDROX/AL HYDROX/SIMETH 355 ML BOTTLE PO PRN (13:31)
[2024-06-10] MEDS: haloperidoL 5 MG TAB PO PRN (21:08)
--- NOTE | 2024-06-11 14:35 | P.PN ---
Progress Note - Text Progress Note Date: 06/11/24 Interval History: Patient was seen in bed and was directable and agreeable to speak with story writer in the office. Patient reports feeling better, said her father's birthday is today and that her sister plans on calling her when she is with him later on as he stays at an assisted living facility. Patient states her friend might be able to provide housing for her and that her sister is looking into this or other alternatives. Patient was encouraged to continue looking for new jobs so that she could become more financially independent to which she agreed. Patient notably appeared more reactive, reports sleeping well other than the temperature in the room being too hot. At this time patient denies any suicidal or homicidal ideations, intent or plan. Patient denies any auditory, visual hallucinations and denies any paranoia or delusions. Patient denies any side effects from the medications and has been compliant with meds. Mental Status Exam: General Appearance: Patient appears to be stated age is alert, directable, and cooperative. She wears glasses Behavior: Patient is calmly seated without any agitated behavior. Speech: Patient's speech is fluent and nonpressured. Mood/Affect: Mood is improving mildly, affect is congruent and constricted. Suicidality/Homicidality: Patient denies having any suicidal or homicidal ideation intent or plan. Perceptions: Patient denies any visual hallucinations and denies any auditory hallucinations Though content/process: There is no evidence of any delusional thought content and thought process is linear and goal-directed. Memory and concentration: AOX3, grossly intact for the purposes of this session Judgment and insight: Improving mildly Assessment Major depressive disorder, recurrent, moderate Persistent depressive disorder Alcohol use disorder, mild Generalized anxiety disorder Plan: -Patient continues to meet criteria for inpatient psychiatric admission for symptom stabilization and safety. Patient has signed adult voluntary form and medication consent and was placed in patient's chart. -Medications: Increase BuSpar to 10 mg 3 times daily for anxiety, continue Prozac 40 mg daily for depression/anxiety, naltrexone 50 mg daily for alcohol cravings, Vistaril 100 mg at bedtime for sleep, melatonin 10 mg at bedtime for sleep -When necessary hydroxyzine and Haldol for agitation/aggression. -Labs: Reviewed, lab work also reviewed with patient today -SW on board for discharge planning. Encouraged the patient to participate in milieu. Anticipate discharge home tomorrow with friend versus nursing home
[2024-06-11] MEDS: busPIRone HCl 10 MG TAB PO SCH (15:38)
[2024-06-11] MEDS: IBUPROFEN 800 MG TAB PO PRN (22:21)
[2024-06-12 04:48] VITALS: RESP 17
[2024-06-12] MEDS ORDERED: ONDANSETRON 4 MG/2 ML VIAL IVP PRN (04:50)
[2024-06-12] MEDS: ONDANSETRON ODT 4 MG TAB PO PRN (05:00)
[2024-06-12] MEDS: LORazepam 2 MG/ML INJ IM PRN (06:41)
[2024-06-12 07:12] VITALS: BP 130/86; PULSE 99; TEMP 97.8
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
== END 2024-06-12 13:43 | disposition home or self-care (01) | DRG 885 ==
LOC: EC 22:53 → 3MHU 06-06 14:10
PROVIDERS: ADMIT Psychiatry & Neurology Psychiatry; ATTEND Psychiatry & Neurology Psychiatry
DX: F33.2 Major depressive disorder, recurrent severe without psychotic features (principal); Z59.00 Homelessness unspecified; Z91.148 Patient's other noncompliance with medication regimen for other reason; F10.20 Alcohol dependence, uncomplicated; F34.1 Dysthymic disorder; I10 Essential (primary) hypertension; F60.3 Borderline personality disorder; E78.5 Hyperlipidemia, unspecified; T43.226A Underdosing of selective serotonin reuptake inhibitors, initial encounter; T43.596A Underdosing of other antipsychotics and neuroleptics, initial encounter; T50.7X6A Underdosing of analeptics and opioid receptor antagonists, initial encounter; W19.XXXA Unspecified fall, initial encounter; M25.562 Pain in left knee; F41.1 Generalized anxiety disorder; Z91.52 Personal history of nonsuicidal self-harm; Z91.51 Personal history of suicidal behavior; Z79.899 Other long term (current) drug therapy; Z56.0 Unemployment, unspecified; Z88.8 Allergy status to other drugs, medicaments and biological substances; Z11.52 Encounter for screening for COVID-19
CPT/HCPCS: 80053; 80061; 80306; 81003; 81025; 82075; 82248; 83036; 84443; 85025; 87635; 96372; 99285